=== PATIENT | female | born 1965 | race Caucasian/White ===

== ENCOUNTER → 2017-04-17 | Outpatient (CLI) | payer BC ==
--- NOTE | 2017-04-20 08:00 | MAMMOGRAPHY REPORT ---
BILATERAL DIGITAL SCREENING MAMMOGRAM TOMOSYNTHESIS WITH CAD: 04/17/2017 CLINICAL HISTORY: Routine screening. Patient has no complaints. TECHNIQUE: Breast tomosynthesis in addition to standard 2D mammography was performed. Current study was also evaluated with a Computer Aided Detection (CAD) system. COMPARISON: Comparison is made to exams dated: 04/14/2016 mammogram, 04/11/2015 mammogram, 04/10/2014 m ammogram, 04/08/2013 mammogram, 03/29/2012 mammogram, and 10/06/2011 mammogram - [facility] ter. BREAST COMPOSITION: The tissue of both breasts is heterogeneously dense, which may obscure small mas ses. FINDINGS: No suspicious masses, calcifications, or areas of architectural distortion are noted in ei ther breast. There has been no significant interval change compared to prior exams. IMPRESSION: ACR BI-RADS CATEGORY 1: NEGATIVE There is no mammographic evidence of malignancy. A 1 year screening mammogram is recommended. The pa tient will receive written notification of the results. Approximately 10% of breast cancers are not detected with mammography. A negative mammographic report should not delay biopsy if a clinically suggestive mass is present. Etta Beltran M.D. ah/:04/17/2017 14:31:36 Drainman: Reina BURTON(Feliciano)(Gustavo)(BD), [facility] letter sent: Normal 1/2 BI-RADS Code: ACR BI-RADS Category 1: Negative
== END | disposition home or self-care (01) ==
LOC: C.MAMM 13:31
PROVIDERS: ATTEND Internal Medicine
DX: Z12.31 Encounter for screening mammogram for malignant neoplasm of breast (principal)

== ENCOUNTER → 2017-05-01 | Outpatient (CLI) | payer BC ==
--- NOTE | 2017-05-01 13:33 | DIAGNOSTIC IMAGING REPORT ---
LEFT FOOT MIN 3 VIEWS ROUTINE CLINICAL HISTORY: 51 years-old Female presenting with left foot pain, no trauma, pain at the first metatarsal-phalangeal joint. TECHNIQUE: Frontal, oblique, and lateral views of the left foot were obtained. COMPARISON: None. FINDINGS: No acute fracture or malalignment. Marginal osteophytosis noted at the first metatarsophalangeal joint consistent with degenerative change. No significant joint space loss. No degenerative change noted elsewhere. Regional soft tissues normal. IMPRESSION: No acute osseous injury of the left foot. Degenerative changes of the first metatarsophalangeal joint. Electronically signed by: Erasmo Tran M.D. 05/01/2017 1:32 PM Dictated Date/Time: 05/01/2017 1:31 PM
--- NOTE | 2017-05-01 14:07 | DIAGNOSTIC IMAGING REPORT ---
ULTRASOUND RIGHT VENOUS DOPP LOWER EXT UNILAT CLINICAL HISTORY: Right lower extremity edema COMPARISON STUDY: No previous studies for comparison. FINDINGS: Real-time and color flow Doppler imaging were performed. Flow was seen within the femoral, popliteal and calf veins with no intraluminal thrombus demonstrated. The saphenous vein is patent. IMPRESSION: No evidence of right lower extremity DVT. Electronically signed by: Ez Thompson M.D. 05/01/2017 2:05 PM Dictated Date/Time: 05/01/2017 2:05 PM
== END | disposition home or self-care (01) ==
LOC: C.ULTR 12:53
PROVIDERS: ATTEND Internal Medicine
DX: M79.672 Pain in left foot (principal); R60.9 Edema, unspecified

== ENCOUNTER → 2017-10-23 | Outpatient (CLI) | payer OTHER ==
--- NOTE | 2017-10-23 12:16 | DIAGNOSTIC IMAGING REPORT ---
ULTRASOUND OF THE PELVIS CLINICAL HISTORY: Ovarian cyst. COMPARISON STUDY: Pelvic ultrasound dated 07/30/2017. TECHNIQUE: Real-time, grayscale, and color flow sonography of the pelvis is performed both transabdominally and endovaginally. Images are reviewed in the transverse and longitudinal planes. FINDINGS: Uterus: The uterus is normal in size and echotexture, measuring 8.5 x 4.7 x 5.1 cm. Small Nabothian cysts are noted in the cervix. Endometrium: The endometrium is normal in appearance, and the endometrial stripe is normal in thickness measuring up to 0.8 cm. Ovaries: The ovaries are normal in size and morphology. The right ovary measures 6.7 x 4.2 x 4.8 cm and the left ovary measures 3.0 x 2.6 x 2.4 cm. There is a minimally complex cystic lesion within the right ovary which contains a thick internal septation. This measures 5.9 x 3.2 x 4.0 cm. There is minimal flow within the internal septation. Normal Doppler waveforms are shown within both ovaries. Pelvis: There is no free fluid in the cul-de-sac. No concerning adnexal lesion is seen. IMPRESSION: 1. There is been no significant change in the appearance of a 5.9 cm cystic lesion in the right ovary which contains thick internal septations. Given the lack of resolution from previous, ovarian neoplasm is the diagnosis of exclusion. Gynecologic surgical consultation is advised. 2. Unremarkable sonographic appearance of the uterus and left ovary. Electronically signed by: Ruben Anaya M.D. 10/23/2017 12:15 PM Dictated Date/Time: 10/23/2017 12:09 PM
== END | disposition home or self-care (01) ==
LOC: C.ULTR 10:25
PROVIDERS: ATTEND Physician Assistant Medical
DX: N83.201 Unspecified ovarian cyst, right side (principal)

== ENCOUNTER → 2018-04-19 | Outpatient (CLI) | payer OTHER ==
--- NOTE | 2018-04-20 06:59 | MAMMOGRAPHY REPORT ---
BILATERAL DIGITAL SCREENING MAMMOGRAM TOMOSYNTHESIS WITH CAD: 04/19/2018 CLINICAL HISTORY: Routine screening. TECHNIQUE: The study was acquired using full field digital technology and interpreted from soft copy. Breast tomosynthesis in addition to standard 2D mammography was performed. Current study was also ev aluated with a Computer Aided Detection (CAD) system. COMPARISON: Comparison is made to exams dated: 04/17/2017 mammogram, 04/14/2016 mammogram, 04/11/2015 m ammogram, 04/10/2014 mammogram, 04/08/2013 mammogram, and 03/29/2012 mammogram - [facility] nter. BREAST COMPOSITION: The tissue of both breasts is heterogeneously dense, which may obscure small mass es. FINDINGS: There are possible clustered microcalcifications in the lateral, middle to posterior left b reast, best seen on the exaggerated lateral CC view, for which additional spot magnification views ar e recommended. There is stable asymmetry in the medial left breast. No other suspicious mass, architectural distorti on or cluster of microcalcifications is seen. IMPRESSION: ACR BI-RADS CATEGORY 0: INCOMPLETE EVALUATION: NEED ADDITIONAL IMAGING EVALUATION The possible clustered microcalcifications in the lateral left breast needs additional evaluation. The patient will be called to schedule an appointment. Some breast cancers are not detected with mammography. A negative mammographic report should not lizz y biopsy if a clinically suggestive mass is present. Goldie Choudhary M.D. ay/:04/19/2018 16:52:23 Zinc Plate Cutter: RT Hermann(Feliciano)(M), [facility] letter sent: Addl Imaging 0 BI-RADS Code: ACR BI-RADS Category 0: Incomplete Evaluation: Need Additional Imaging Evaluation
== END | disposition home or self-care (01) ==
LOC: C.MAMM 13:53
PROVIDERS: ATTEND Internal Medicine
DX: Z12.31 Encounter for screening mammogram for malignant neoplasm of breast (principal)